=== PATIENT | female | born 1965 | race Caucasian/White ===

== ENCOUNTER 2020-12-30 10:54 | Emergency (ER) | payer OTHER ==
[~2020-12-30 10:54] MED LIST: AMITRIPTYLINE 550 MG PO; ASPIRIN EC81 MG PO; BRILINTA90 MG PO; COREG 3.125M3.125 MG PO; LIPITOR80 MG PO; NITROQUIK SL0.4 MG SL; ZESTRIL2.5 MG PO
[2020-12-30 11:18] LABS: BASOPHIL 0.9 % (0-2); EOSINOPHIL 2.5 % (0-5); HCT 41.4 % (37.0-47.0); LYMPHOCYTE 39.2 % (15-48); MCH 32.9 pg (25.0-31.0); MCHC 33.8 g/dL (32.0-36.0); MCV 97.4 fL (78.0-100.0); MONOCYTE 5.8 % (0-12); MPV 11.1 fL (6.0-9.5); NEUTROPHIL 51.3 % (41-80); NRBC 0; PLT 176 K/uL (150-400); RBC 4.25 M/uL (4.20-5.40); RDW 13.5 % (11.5-14.0); WBC 6.5 K/uL (4.0-10.5)
[2020-12-30 11:30] LABS: INR 1.06 (0.9-1.2); PROTHROMBIN TIME 13.2 SECONDS (11.8-13.4)
[2020-12-30 11:31] LABS: PTT 30.9 SECONDS (24.4-34.7)
[2020-12-30 11:32] LABS: D-DIMER 0.51 ug/mLFEU (0.00-0.41)
[2020-12-30 11:35] LABS: BILIRUBIN - TOTAL 0.7 mg/dL (0.2-1.0); BUN/CREAT RATIO (CALC) 18.4 RATIO; CREATININE 0.76 mg/dL (0.51-0.95); GLOBULIN (CALCULATION) 3.4 g/dL; MAGNESIUM 2.1 mg/dL (1.8-2.4); POTASSIUM 4.3 mmol/L (3.5-5.1); TOTAL PROTEIN 7.4 g/dL (6.4-8.2)
[2020-12-30 11:42] LABS: PRO-BNP 961 pg/mL (<125)
== END 2020-12-30 14:31 | disposition home or self-care (01) ==
LOC: FER 10:54
PROVIDERS: Emergency Medicine
DX: R00.2 Palpitations (principal); R07.89 Other chest pain; I25.2 Old myocardial infarction; F17.210 Nicotine dependence, cigarettes, uncomplicated; Z95.5 Presence of coronary angioplasty implant and graft; Z98.890 Other specified postprocedural states
CPT/HCPCS: 36415; 71045; 80053; 83690; 83735; 83880; 84484; 85025; 85379; 85610; 85730; 93005

== ENCOUNTER 2021-05-09 10:43 | Emergency (ER) | payer OTHER ==
[~2021-05-09] VITALS: Ht 182.9 cm; Wt 67.1 kg
[2021-05-09 11:51] LABS: BASOPHIL 0.6 % (0-2); EOSINOPHIL 2.6 % (0-5); HCT 43.3 % (37.0-47.0); HGB 14.3 g/dl (12.5-16.0); LYMPHOCYTE 35.1 % (15-48); MCH 32.1 pg (25.0-31.0); MCV 97.1 fL (78.0-100.0); MONOCYTE 6.9 % (0-12); MPV 11.5 fL (6.0-9.5); NEUTROPHIL 54.6 % (41-80); NRBC 0; PLT 181 K/uL (150-400); RBC 4.46 M/uL (4.20-5.40); RDW 14.1 % (11.5-14.0); WBC 4.7 K/uL (4.0-10.5)
[2021-05-09 12:01] LABS: ALBUMIN 4.2 g/dL (3.4-5.0); BILIRUBIN - TOTAL 1.3 mg/dL (0.2-1.0); BUN/CREAT RATIO (CALC) 18.2 RATIO; CREATININE 0.77 mg/dL (0.51-0.95); GLOBULIN (CALCULATION) 3.5 g/dL; MAGNESIUM 2.1 mg/dL (1.8-2.4); POTASSIUM 4.2 mmol/L (3.5-5.1); TOTAL PROTEIN 7.7 g/dL (6.4-8.2)
== END 2021-05-09 12:42 | disposition home or self-care (01) ==
LOC: FER 10:43
PROVIDERS: Emergency Medicine
DX: R00.2 Palpitations (principal); I25.10 Atherosclerotic heart disease of native coronary artery without angina pectoris; I25.2 Old myocardial infarction; I10 Essential (primary) hypertension; F17.200 Nicotine dependence, unspecified, uncomplicated; Z79.899 Other long term (current) drug therapy
CPT/HCPCS: 36415; 71045; 80053; 83735; 84443; 84484; 85025; 93005

== ENCOUNTER 2022-01-19 14:01 | Emergency (ER) | payer OTHER ==
[2022-01-19 14:39] LABS: BASOPHIL 0.6 % (0-2); EOSINOPHIL 1.5 % (0-5); HCT 41.3 % (37.0-47.0); HGB 14.1 g/dl (12.5-16.0); LYMPHOCYTE 28.2 % (15-48); MCH 33.5 pg (25.0-31.0); MCHC 34.1 g/dL (32.0-36.0); MCV 98.1 fL (78.0-100.0); MONOCYTE 5.4 % (0-12); MPV 11.5 fL (6.0-9.5); NRBC 0; PLT 155 K/uL (150-400); RBC 4.21 M/uL (4.20-5.40); RDW 12.7 % (11.5-14.0); WBC 6.9 K/uL (4.0-10.5)
[2022-01-19 15:03] LABS: BUN/CREAT RATIO (CALC) 23.6 RATIO; CREATININE 0.89 mg/dL (0.51-0.95); POTASSIUM 4.3 mmol/L (3.5-5.1)
== END 2022-01-19 16:03 | disposition home or self-care (01) ==
LOC: FER 14:01
PROVIDERS: Emergency Medicine
DX: R07.89 Other chest pain (principal); I10 Essential (primary) hypertension; I25.10 Atherosclerotic heart disease of native coronary artery without angina pectoris; F17.210 Nicotine dependence, cigarettes, uncomplicated; Z79.82 Long term (current) use of aspirin; Z95.5 Presence of coronary angioplasty implant and graft; Z79.899 Other long term (current) drug therapy
CPT/HCPCS: 36415; 71046; 80048; 82553; 84484; 85025; 93005; J7030